=== PATIENT | male | born 1990 | race Caucasian/White ===

== ENCOUNTER 2016-07-09 21:10 | Emergency (ER) | payer MEDICAID ==
[2016-07-09] MEDS ORDERED: cloNIDine 0.1 MG TABLET PO STA (23:08)
[2016-07-09] MEDS ORDERED: LORazepam 0.5 MG TABLET PO STA (23:08)
[2016-07-09] MEDS ORDERED: oxyCODONE/ACET 5/325 Prepack 4 PO STA (23:09)
[2016-07-09] MEDS ORDERED: oxyCODONE 5 MG TABLET PO STA (23:09)
[2016-07-09] MEDS ORDERED: ONDANSETRON ODT 4 MG TABLET TL STA (23:09)
[2016-07-09] MEDS ORDERED: oxyCODONE 5 MG TABLET ONE (23:19)
[2016-07-09] MEDS ORDERED: LORazepam 0.5 MG TABLET ONE (23:19)
[2016-07-09] MEDS ORDERED: cloNIDine 0.1 MG TABLET ONE (23:20)
[2016-07-09] MEDS ORDERED: ONDANSETRON ODT 4 MG TABLET ONE (23:20)
[2016-07-09] MEDS ORDERED: oxyCODONE/ACET 5/325 Prepack 4 PO ONE (23:20)
[2016-07-09] MEDS ORDERED: ONDANSETRON ODT 4 MG Prepack 2 TL ONE (23:21)
== END 2016-07-10 01:41 | disposition home or self-care (01) ==
DX: F11.23 Opioid dependence with withdrawal (principal)
CPT/HCPCS: 99283; 99284; A9270; Q0162

== ENCOUNTER 2018-02-04 20:16 | Emergency (ER) | payer MEDICAID ==
[2018-02-04 20:34] VITALS: BP 155/96
== END 2018-02-04 22:37 | disposition left against medical advice (07) ==
LOC: ED 20:16
DX: Z53.21 Procedure and treatment not carried out due to patient leaving prior to being seen by health care provider (principal)

== ENCOUNTER 2020-05-26 23:27 | Emergency (ER) | payer MEDICAID ==
--- NOTE | 2020-05-26 23:39 | ED Physician Documentation ---
PD HPI UPPER EXT INJURY - Stated complaint Stated Complaint: LT FINGER LAC - Chief complaint Chief Complaint: Laceration - History obtained from History obtained from: Patient - History of Present Illness Location: Left, Finger Type of injury: Laceration Where injury occurred: Home Timing - onset: Yesterday Timing - details: Abrupt onset Recently seen: Not recently seen - Additonal information Additional information: sustained left 2nd finger laceration yesterday when using a crepe box tender. He is right hand dominant. He presents tonight at urging of his girlfriend. UTD on tetanus. He denies numbness, weakness Review of Systems Skin: reports: Laceration (s) Neurologic: denies: Focal weakness, Numbness PD PAST MEDICAL HISTORY - Past Medical History Past Medical History: No - Past Surgical History Past Surgical History: No - Present Medications Home Medications: Ambulatory Orders Medication Instructions Recorded Confirmed Cephalexin [Keflex] 500 mg PO Q6H #19 capsule 05/26/20 - Allergies Allergies/Adverse Reactions: Allergies Allergy/AdvReac Type Severity Reaction Status Date / Time No Known Drug Allergies Allergy Verified 05/26/20 23:35 - Social History Does the pt smoke?: No Smoking Status: Never smoker Does the pt drink ETOH?: No PD ED PE NORMAL - Vitals Vital signs reviewed: Yes - General General: Alert and oriented X 3, No acute distress, Well developed/nourished - Neuro Neuro: No motor deficit (full ROM and strength 2nd left finger, flexion and extension including with isolation of PIP, DIP, MCP joints (flexion)), No sensory deficit (LTS intact at tip of left 2nd digit) PD ED PE EXPANDED - Extremities SAURAV UE/Hands Visual: 1 - laceration (1.5 cm, 1-2mm separation of wound edges) Results - Vitals Vitals: Vital Signs - 24 hr 05/26/20 05/26/20 05/27/20 23:33 23:35 00:09 Temperature 36.8 C 36.8 C 36.8 C Heart Rate 100 99 89 Respiratory 16 16 18 Rate Blood Pressure 167/100 H 165/99 H 156/82 H O2 Saturation 100 100 100 Oxygen O2 Source Room air PD MEDICAL DECISION MAKING - ED course Complexity details: considered differential, d/w patient ED course: patient presents with left finger laceration sustained over 24 hours [employer]. neurovascularly intact. The wound is minimally open (wound edges are 1-2mm apart in central third of the wound and only with traction on edges (edges approximate at rest)). Steri-strips placed and splint applied rather than suturing, and keflex given with rx for 5 days for wound infection prophylaxis given length of time since injury sustained Departure - Departure Disposition: 01 Home, Self Care Clinical Impression: Laceration Condition: Good Instructions: ED Laceration Ext Sutr Stap Tape Prescriptions: Cephalexin [Keflex] 500 mg PO Q6H #19 capsule Discharge Date/Time: 05/27/20 00:17
[2020-05-26] MEDS ORDERED: cephALEXin 250 MG CAPSULE PO STA (23:53)
[2020-05-27 00:10] VITALS: BP 156/82
== END 2020-05-27 00:17 | disposition home or self-care (01) ==
LOC: ED 23:27
DX: S61.211A Laceration without foreign body of left index finger without damage to nail, initial encounter (principal); W27.8XXA Contact with other nonpowered hand tool, initial encounter; Y93.89 Activity, other specified; Y92.009 Unspecified place in unspecified non-institutional (private) residence as the place of occurrence of the external cause
CPT/HCPCS: 99282; 99283; A9270